=== PATIENT | male | born 1960 | race Caucasian/White ===

== ENCOUNTER 2023-01-07 07:35 | Day surgery (SDC) | payer OTHER ==
[2023-01-03 09:23] LABS: HEMATOCRIT 43.7 % (39.0-48.0); HEMOGLOBIN 14.3 g/dL (13-16.00); MEAN CELL VOLUME 91.7 fL (80.0-100.00); MEAN CORPUSCULAR HEMOGLOBIN 30.1 pg (27.00-32.0); MEAN CORPUSCULAR HGB CONC 32.8 g/dl (32.0-36.0); PLATELET COUNT 183 K/uL (150-450); RED BLOOD COUNT 4.76 M/uL (4.00-6.00); RED CELL DISTRIBUTION WIDTH 15.1 % (11.5-14.5)
[2023-01-03 09:57] LABS: INR 0.98; PARTIAL THROMBOPLASTIN TIME 29.3 SECONDS (22.0-34.0); PROTHROMBIN TIME 10.3 SECONDS (9.0-11.5)
[2023-01-03 10:08] LABS: ALBUMIN 3.7 gm/dL (3.4-5.0); BILIRUBIN TOTAL 0.37 mg/dL (0.3-1.2); CALCIUM 9.2 mg/dL (8.5-10.1); CREATININE SERUM 1.1 mg/dL (0.70-1.30); GFR 67.39; GLOBULINA 3.3 G/DL (2.4-3.5); PHOSPHOROUS 2.8 mg/dL (2.5-4.9); POTASSIUM 4.9 mEq/L (3.5-5.1)
[2023-01-03 10:30] LABS: PH,URINE 5.5 (5.0-8.0); URINE APPEARANCE Clear; URINE BILIRRUBIN Negative (NEGATIVE); URINE BLOOD Negative; URINE COLOR Yellow; URINE GLUCOSE Negative (NEGATIVE); URINE LEUKOCYTE Negative; URINE NITRATE Negative; URINE PROTEIN Negative (NEGATIVE); URINE UROBILINOGEN 0.2 E.U./dl
[2023-01-03 10:36] LABS: URINE WBC 1.8 uL (0.0-23.2)
[2023-01-03 10:55] LABS: URINE BACTERIA 2.5 uL (0.0-1933); URINE EPITHELIAL CELLS 0.9 uL (0.0-38.8); URINE RBC 1.7 uL (0.0-20.8)
[~2023-01-07] VITALS: Ht 182.9 cm; Wt 102.1 kg
[~2023-01-07 07:35] MED LIST: ADULT LOW DOSE81 M1 PO; ALDACTONE25 MG PO; AMLODIP PO; CARV PO; LOSARTAN-HCTZ1 EAC1 PO; ZETIA10 MG PO
[2023-01-07] MEDS ORDERED: CEPHALEXIN500 M1 PO (13:34)
[2023-01-07] MEDS ORDERED: CIPROFLOXACIN2.5 ML OTIC (13:34)
== END 2023-01-07 16:25 | disposition home or self-care (01) ==
LOC: CIR.AMB 07:35
PROVIDERS: ATTEND Otolaryngology Otology & Neurotology
DX: H70.11 Chronic mastoiditis, right ear (principal); H65.21 Chronic serous otitis media, right ear; Z20.822 Contact with and (suspected) exposure to COVID-19